=== PATIENT | male | born 1940 | race African-American/Black ===

== ENCOUNTER 2017-02-09 15:46 | Inpatient (IN) | payer OTHER, MEDICAID ==
[~2017-02-09] VITALS: Ht 154.9 cm; Wt 64.4 kg
[~2017-02-09 15:46] MED LIST: AMIODARONE200 MG PO; AMLODIPINE5 M1 PO; COLACE100 MG PO; COU2.5 PO; COU5 PO; COUMADIN2.5 MG PO; COUMADIN3 MG PO; HYDROCODONE BIT1 T26 PO; LOPRESSOR50 MG PO; NORCO1 TA2 PO; PRO40 PO; REN800 PO; TRE400 PO; ULT50 PO; ZES5 PO; ZOC20 PO; ZOCOR20 MG PO
--- NOTE | 2017-02-09 16:05 | NUR ---
PT WAS BROUGHT IN BY AMBULANCE W/CC OF LOW BG. PT'S BG AT HOME WAS 25 WHEN FAMILY FOUND HIM ALTERED. PT REC'D DEXTROSE BY EMS AND BG RAJNI TO 187. PT AWAKE, ALERT AND ORIENTED X4. NO NEUROLOGICAL DEFICTS NOTED. COMFORT MEASURES IMPLEMENTED. CALL LIGHT W/IN REACH. PT AWAITING MSE. WILL CONTINUE TO MONITOR.
--- NOTE | 2017-02-09 16:22 | NUR ---
DR. JACKSON AT BEDSIDE FOR MSE.
--- NOTE | 2017-02-09 16:41 | NUR ---
MEDICATED ORDERED. PLEASE SEE EMR.
--- NOTE | 2017-02-09 17:03 | NUR ---
PT SITTING ON GURNEY IN POSITION OF COMFORT. RESPS E/U. NO S/S OF DISTRESS NOTED. CALL LIGHT W/IN REACH. WILL CONTINUE TO MONITOR.
[2017-02-09 17:09] LABS: BASOPHIL % 0.4 % (0-2); PLATELET COUNT 185 x10^3mcL (130-400)
[2017-02-09 17:10] LABS: ALKALINE PHOSPHATASE 97 U/L (46-116); ALT/SGPT 19 U/L (16-63); AST/SGOT 16 U/L (15-37); BILIRUBIN TOTAL 0.5 mg/dL (0.20-1.00); CALCIUM 8.8 mg/dL (8.5-10.1); CARBON DIOXIDE 36.3 mmol/L (21-32); CHLORIDE SERUM 98 mmol/L (98-107); GLUCOSE SERUM 82 mg/dL (74-106); POTASSIUM SERUM 3.4 mmol/L (3.5-5.1); RED CELL DISTRIBUTION WIDTH 17.5 % (11.5-14.5); SODIUM SERUM 142 mmol/L (136-145); TOTAL PROTEIN, SERUM 7.1 g/dL (6.4-8.2)
[2017-02-09 17:12] LABS: ALBUMIN 3.2 g/dL (3.4-5.0)
[2017-02-09 17:14] LABS: CREATININE SERUM 4.4 mg/dL (0.7-1.3)
--- NOTE | 2017-02-09 17:30 | NUR ---
DR. JACKSON MADE AWARE OF NEW BG READING OF 79. MED ORDER PENDING.
--- NOTE | 2017-02-09 17:35 | NUR ---
MEDICATED ORDERED. PLEASE SEE EMR.
--- NOTE | 2017-02-09 19:25 | NUR ---
REPORT GIVEN TO MIRIAM HARLEY FOR CONTINUATION OF CARE PRIMARY RN.
--- NOTE | 2017-02-09 19:28 | NUR ---
REPORT RECEIVED FROM MIRIAM SALAS. ALL QUESTIONS AND CONCERNS ADDRESSED.
[2017-02-09 20:06] VITALS: BP 146/79
[2017-02-09 20:15] LABS: MAGNESIUM 2.1 mg/dL (1.8-2.4); PHOSPHOROUS 3.3 mg/dL (2.5-4.9); T3 TOTAL 0.64 ng/mL
[2017-02-09 20:17] LABS: CHOLESTEROL/HDL RATIO 2.3
[2017-02-09 20:20] LABS: FREE T4 1.48 ng/dL (0.76-1.46); FREE THYROXINE INDEX 4.6 ug/dL (1.4-4.5)
[2017-02-09 21:09] VITALS: BP 146/79
--- NOTE | 2017-02-09 22:34 | NUR ---
BLOOD SUGAR AR 2202=40MG/DL, DR GODWIN MADE AWARE, MD TALKED TO BOARD AND CARE PT DID NOT EAT LAST NIGHT AND WHOLE DAY TODAY. PT WAS GIVEN 3CUPS OF PUDDING AND 240CC OF REGULAR SPRITE, BLOOD SUGAR CHECKED AFTER 30MINS WITH RESULT OF 43MG/DL. DR GODWIN MADE AWARE AND ORDERED D5 1/2NS AT 100CC/HR AND CARRIED OUT.
--- NOTE | 2017-02-10 00:11 | NUR ---
250ML D50 COMPLETED, BLOOD SUGAR CHECKED 223MG/DL. PT APPARENTLY RESTING IN BED. NO S/S OF ACUTE DISTRESS.
[2017-02-10 00:30] VITALS: BP 147/76
--- NOTE | 2017-02-10 01:30 | NUR ---
ADDITIONAL SNACKS GIVEN AND WELL TOLERATED. NO S/S OF GLYCEMIC REACTION NTOED. KEPT CLEAN AND DRY.
[2017-02-10 05:29] VITALS: BP 141/81
[2017-02-10 05:32] VITALS: BP 166/64
[2017-02-10 06:15] LABS: BASOPHIL % 0.5 % (0-2); PLATELET COUNT 160 x10^3mcL (130-400)
--- NOTE | 2017-02-10 06:15 | NUR ---
BLOOD SUGAR CHECKED 92MG/DL. DENIES ANY DISCOMFORT AT THIS TIME. TOLERATED FLUIDS ORALLY. KEPT CLEAN AND DRY. ALL NEEDS ATTENDED.
[2017-02-10 06:33] VITALS: Ht 154.9 cm; Wt 64.4 kg
[2017-02-10 06:44] LABS: CALCIUM 8.8 mg/dL (8.5-10.1); CARBON DIOXIDE 29.5 mmol/L (21-32); CHLORIDE SERUM 102 mmol/L (98-107); GLUCOSE SERUM 70 mg/dL (74-106); POTASSIUM SERUM 3.8 mmol/L (3.5-5.1); SODIUM SERUM 140 mmol/L (136-145)
[2017-02-10 06:46] LABS: ALBUMIN 2.8 g/dL (3.4-5.0); CREATININE SERUM 4.8 mg/dL (0.7-1.3)
[2017-02-10 06:58] LABS: RED CELL DISTRIBUTION WIDTH 17.1 % (11.5-14.5)
--- NOTE | 2017-02-10 08:05 | NUR ---
PT IS AWAKE AND ALERT WITH PERIODS OF CONFUSION AND FORGETFULNESS. VISUAL DEFICTS R/T BLIND RIGHT EYE. ON TELE #14 WITH NSR. PULSES PALPABLE BILATERALLY. LUNG SOUNDS CLEAR TO AUSCULTATION. HEMODIALYSIS PATIENT WITH RIGHT ARM FISTULA WITH GOOD BRUIT AND THRILL. PT IS ANURIC WITH NO OUTPUT. GENERALIZED WEAKNESS.WILL CONTINUE PLAN OF CARE.
[2017-02-10 13:10] VITALS: BP 142/57
--- NOTE | 2017-02-10 15:14 | NUR ---
NOTIFIED REGARDING THE PT RESULTS 18.2 INR 1.7 PTT 36.8 MADE AWARE WITH ORDERS RECEIVED.
--- NOTE | 2017-02-10 15:25 | NUR ---
HEMODIALYSIS STARTED ,HEMODIALYSIS NURSE AT BEDSIDE,PT. RESTING COMFORTABLY IN BED. CALL LIGHT W/ IN REACH.
--- NOTE | 2017-02-10 15:26 | NUR ---
Initial Nutrition Assessment Dx: Metabolic Encephalopathy 2/2 Hypoglycemia PMHx: ESRD on dialysis M/W/F [facility], chronic atrial fibrillation, CAD s/p CABG, HLD, GERD, HTN, DM2T PSHx: CABG Labs: BG 70L,FSBS: 43 (02/09), K+ 3.8, Phos 3.3, BUN 26H, Cr 4.8H, Alb 2.8L, A1C 4.5, H/H 8.3/26L Meds: renagel, colace, protonix, humulin R, zofran, morphine Current Diet Order: Renal (02/09) PO Intakes: 100% (02/10) Ht: 154.94cm,61". Wt: 141lbs, 64kg. BMI: 26.8 kg/m2 (Overweight) IBW: 112lb, 51kg. %IBW: 156%. UBW: pt unsure Age: 76 Y/O M Food Allergies: NKFA Skin: intact. Jovan:18 Edema: None noted GI: bowel sounds active. Last BM:1 (02/08) D.O Consult: decreased PO intake and hypoglycemia Pt admitted w/Metabolic Encephalopathy 2/2 Hypoglycemia, as per H+P, pt refused to eat dinner and takes 10 units of Lantus in the AM, seen at bedside w/ no family present, pt was a bit groggy but open to RD interview, states eating very well for lunch, has missing teeth but does not want the texture to be changed, denies GI issues, does not like to drink Nepro, declined education or handouts at this time. Spoke to LOGISTICS PLANNING MANAGER, reports the pt ate very well for lunch, the pt was concerned about his hand shaking but ate the hamburger fine, during breakfast the pt needed assistance w/ utensils but was agreeable to the help, no BM during shift, denies other GI issues. Problem with: N: None. V: None. D: none. C: None. Problem with: Chewing: Yes- has some bottom teeth missing, declined texture change. Swallowing: None. Current Appetite: Good Recent Weight Change: unable to assess. % Weight Change: unable to assess Vitamin/Supplement Use: none Diet at Home: is from [facility], 3 meals per day, does not like Nepro Physical Activity: ambulates w/ wheelchair and walker Education: none Estimated Nutritional Needs Based on IBW 112 lb, 51kg Energy: 4735-3498 kcal/day (30-35 kcal/kg for HD) Protein: 61-77 g/day (1.2-1.5 g/kg for HD) Fluid: output +750 ml/day (for HD) or per MD Nutrition Diagnosis 1. Increased protein and energy needs related to impaired renal function 2/2 HD as evidenced by pt on HD. 2. Altered nutrition related labs related to inappropriate insulin administration 2/2 skipping meal as evidenced by pt w/ FSBS: 43mg/dL and Bmg/dL. Intervention 1. CCHO 60gm Renal diet w/ 75g protein per day. Make food preferences known. 2. Adjust insulin regimen PRN- Bmg/dL and FSBS:43mg/dL 3. Nephro-aggie daily Monitor/Evaluate Goal: PO intakes to meet at least 75% of estimated needs; FSBS:80-180mg/dL Monitor: PO intakes/tolerance, labs, skin integrity, GI function, wt F/U in 3-5 days as MODERATE risk (02/13-02/15)
--- NOTE | 2017-02-10 15:28 | NUR ---
1. [facility] 60gm Renal diet w/ 75g protein per day. Make food preferences known. 2. Adjust insulin regimen PRN- Bmg/dL and FSBS:43mg/dL 3. Nephro-aggie daily
[2017-02-10 16:18] VITALS: BP 145/58
--- NOTE | 2017-02-10 17:00 | NUR ---
HEMODIALYSIS IN PROGRESS.DENIES ANY PAIN NO ACUTE DISTRESS NOTED.
--- NOTE | 2017-02-10 19:25 | NUR ---
HEMODIALYSIS COMPLETED. W/ OUT PUT 2500 CC.
--- NOTE | 2017-02-10 19:26 | NUR ---
RECEIVED PT FROM PREVIOUS SHIFT. PT A/OX3. RECEIVING DIALYSIS AT THIS TIME TO PORT IN [facility]. DENIES PAIN AT THIS TIME. IV TO L HAND PATENT. NO ACUTE DISTRESS. CALL LIGHT WITHIN REACH, BED IN LOW POSITION. WILL CONTINUE TO MONITOR.
--- NOTE | 2017-02-10 21:03 | NUR ---
PT REFUSING ACCUCHECK AT THIS TIME. DR GODWIN PAGED TO MAKE HIM AWARE
[2017-02-10 22:24] VITALS: BP 146/57
--- NOTE | 2017-02-11 02:38 | NUR ---
PT RESTING AT THIS TIME IN NO ACUTE DISTRESS. RR EVEN AND UNLABORED. IV PATENT. CALL LIGHT WITHIN REACH AND BED IN LOW POSITION. WILL CONTINUE TO MONITOR
--- NOTE | 2017-02-11 05:11 | NUR ---
IV TO LFA REMOVED DURING SLEEP. IV TO L HAND STILL PATENT AND FLUSHING WELL.
[2017-02-11 06:06] VITALS: BP 154/50
[2017-02-11 06:12] LABS: CALCIUM 8.6 mg/dL (8.5-10.1); CARBON DIOXIDE 33.8 mmol/L (21-32); CHLORIDE SERUM 100 mmol/L (98-107); CREATININE SERUM 3.2 mg/dL (0.7-1.3); GLUCOSE SERUM 132 mg/dL (74-106); PHOSPHOROUS 2.7 mg/dL (2.5-4.9); POTASSIUM SERUM 3.2 mmol/L (3.5-5.1); SODIUM SERUM 140 mmol/L (136-145)
[2017-02-11 06:17] LABS: BASOPHIL % 0.6 % (0-2); PLATELET COUNT 173 x10^3mcL (130-400)
[2017-02-11 06:23] LABS: RED CELL DISTRIBUTION WIDTH 17.5 % (11.5-14.5)
[2017-02-11 06:42] LABS: IRON 44 ug/dL (65-170)
[2017-02-11 06:47] LABS: TOTAL IRON BINDING CAPACITY 222 ug/dL (250-450)
--- NOTE | 2017-02-11 07:55 | NUR ---
AWAKE,ALERT W/ PERIODS OF CONFUSION AND FORGETFULNESS,REQUIRES MOD. ASSIST W/ ADL NEEDS. CALL LIGHT W/ IN REACH.ANURIC HAD HEMODIALYSIS YESTERDAY W/ OUTPUT 2500 CC.DENIES ANY PAIN AT THIS TIME. NO ACUTE RESP. DISTRESS NOTED WILL CONT. PLAN OF CARE.
--- NOTE | 2017-02-11 08:20 | NUR ---
DR. CARBALLO WAS HERE W/ OTHER MEDICAL STAFF MADE ROUNDS AND UPDATED PT. PLAN OF CARE.
[2017-02-11 10:00] VITALS: BP 133/56
[2017-02-11] MEDS ORDERED: BG FS ×2 (12:22→17:36)
[2017-02-11] MEDS ORDERED: HUMULIN R100 U/1 M1 SC (12:29)
[2017-02-11] MEDS ORDERED: NOR5 PO (13:16)
[2017-02-11] MEDS ORDERED: LOPRESSOR50 M1 PO (13:19)
[2017-02-11 13:21] VITALS: BP 145/62
[2017-02-11 13:43] VITALS: BP 145/62
[2017-02-11] MEDS ORDERED: LANTUS SOLOS100 U/M1 SQ ×2 (14:15→17:36)
--- NOTE | 2017-02-11 17:00 | NUR ---
DENIES PAIN THE WHOLE DAY,DR. CARL HERE SEEN PT. W/ ORDERS D/C HOME TODAY. PT. AWARE AND AWAITING FOR RIDE.
[2017-02-11] MEDS ORDERED: 1ST CHOICE LAN1 EACH MC (17:35)
--- NOTE | 2017-02-11 19:15 | NUR ---
DISCHARGE INSTRUCTIONS AND PRESCRIPTION GIVEN AND DISCUSED TO PT. DAUGHTER AND VERBALIZED UNDERSTANDING OF INSTRUCTIONS GIVEN.
--- NOTE | 2017-02-11 19:20 | NUR ---
PT IN STABLE CONDITION. DAUGHTER AT BEDSIDE. DISCHARGED DOWNSTAIRS BY WHEELCHAIR, ACCOMPANIED BY NATALEE COLÓN.
--- NOTE | 2017-02-12 07:15 | NUR ---
ECHOCARDIOGRAM NOT DONE PATIENT DISCHARGED
== END 2017-02-11 19:30 | disposition home or self-care (01) | DRG 637 ==
LOC: ED 15:46 → DU 19:11
PROVIDERS: Emergency Medicine; Internal Medicine Nephrology; ADMIT Family Medicine
DX: E11.649 Type 2 diabetes mellitus with hypoglycemia without coma (principal); G93.41 Metabolic encephalopathy; I50.43 Acute on chronic combined systolic (congestive) and diastolic (congestive) heart failure; E44.0 Moderate protein-calorie malnutrition; I13.2 Hypertensive heart and chronic kidney disease with heart failure and with stage 5 chronic kidney disease, or end stage renal disease; N18.6 End stage renal disease; N17.0 Acute kidney failure with tubular necrosis; E11.51 Type 2 diabetes mellitus with diabetic peripheral angiopathy without gangrene; E87.6 Hypokalemia; I25.10 Atherosclerotic heart disease of native coronary artery without angina pectoris; I48.2 Chronic atrial fibrillation; K21.9 Gastro-esophageal reflux disease without esophagitis; D63.8 Anemia in other chronic diseases classified elsewhere; E78.5 Hyperlipidemia, unspecified; Z99.2 Dependence on renal dialysis; Z68.26 Body mass index [BMI] 26.0-26.9, adult; Z95.1 Presence of aortocoronary bypass graft; Z79.01 Long term (current) use of anticoagulants; Z79.4 Long term (current) use of insulin
CPT/HCPCS: 82962; 83880; 84439; B4164; C9113; J3475; J3490; J7030; Q0092

== ENCOUNTER 2017-03-26 16:04 | Inpatient (IN) | payer OTHER ==
[~2017-03-26] VITALS: Ht 170.2 cm; Wt 72.6 kg
[~2017-03-26 16:04] MED LIST changes: +1ST CHOICE LAN1 EACH MC; +BG FS; +HUMULIN R100 U/1 M1 SC; +LANTUS SOLOS100 U/M1 SQ; +LOPRESSOR50 M1 PO; +NOR5 PO
[2017-03-27] MEDS ORDERED: PANTOPRAZOLE SO40 M1 PO (01:49)
[2017-03-27] MEDS ORDERED: AMIODARONE HCL200 MG PO (01:49)
[2017-03-27] MEDS ORDERED: LISINOPRIL10 MG PO (01:49)
[2017-03-27] MEDS ORDERED: RENVELA800 M1 PO (01:50)
[2017-03-27] MEDS ORDERED: NOR5 PO (01:50)
[2017-03-27] MEDS ORDERED: METOPROLOL SUCC50 M2 PO (01:50)
[2017-03-27] MEDS ORDERED: COUMADIN5 MG PO (01:51)
[2017-03-27] MEDS ORDERED: SIMVASTATIN20 M1 PO (01:51)
[2017-03-27] MEDS ORDERED: LANTUS SOLOS100 U/M1 SQ (01:51)
[2017-03-27 02:52] LABS: CALCIUM 8.6 mg/dL (8.5-10.1); CARBON DIOXIDE 30.8 mmol/L (21-32); CHLORIDE SERUM 100 mmol/L (98-107); CREATININE SERUM 3.2 mg/dL (0.7-1.3); GLUCOSE SERUM 112 mg/dL (74-106); POTASSIUM SERUM 3.2 mmol/L (3.5-5.1); SODIUM SERUM 138 mmol/L (136-145)
[2017-03-27 03:07] LABS: FREE T4 2.13 ng/dL (0.76-1.46); FREE THYROXINE INDEX 4.8 ug/dL (1.4-4.5); T3 TOTAL 0.65 ng/mL; T4(THYROXINE) 12.9 ug/dL (4.7-13.3)
[2017-03-27 03:12] LABS: BASOPHIL % 0.6 % (0-2); PLATELET COUNT 210 x10^3mcL (130-400)
[2017-03-27 03:23] LABS: MAGNESIUM 1.9 mg/dL (1.8-2.4); PHOSPHOROUS 2.2 mg/dL (2.5-4.9)
[2017-03-27 03:24] LABS: RED CELL DISTRIBUTION WIDTH 17.9 % (11.5-14.5)
[2017-03-27 03:29] LABS: CHOLESTEROL/HDL RATIO 2.3
[2017-03-27 04:19] VITALS: BP 168/72
[2017-03-27 06:43] VITALS: BP 160/67
[2017-03-27 09:53] VITALS: BP 127/58
[2017-03-27 11:56] VITALS: Ht 170.2 cm; Wt 72.6 kg
[2017-03-27 13:03] VITALS: BP 150/56
[2017-03-27 17:54] VITALS: BP 139/60
[2017-03-27 20:42] VITALS: BP 140/61
[2017-03-28 05:37] VITALS: BP 134/58
[2017-03-28 07:09] LABS: CARBON DIOXIDE 29.5 mmol/L (21-32); CHLORIDE SERUM 101 mmol/L (98-107); GLUCOSE SERUM 101 mg/dL (74-106); MAGNESIUM 2.1 mg/dL (1.8-2.4); PHOSPHOROUS 3.7 mg/dL (2.5-4.9); POTASSIUM SERUM 5.4 mmol/L (3.5-5.1); SODIUM SERUM 140 mmol/L (136-145)
[2017-03-28 07:27] LABS: CREATININE SERUM 4.6 mg/dL (0.7-1.3)
[2017-03-28 07:29] LABS: BASOPHIL % 0.9 % (0-2); PLATELET COUNT 209 x10^3mcL (130-400)
[2017-03-28 07:31] LABS: RED CELL DISTRIBUTION WIDTH 17.6 % (11.5-14.5)
[2017-03-28 08:40] VITALS: BP 141/56
[2017-03-28 13:55] VITALS: BP 151/64
[2017-03-28 17:35] VITALS: BP 154/62
[2017-03-28 21:00] VITALS: BP 151/65
[2017-03-29 05:30] VITALS: BP 155/67
[2017-03-29 06:55] LABS: BASOPHIL % 0.5 % (0-2); PLATELET COUNT 225 x10^3mcL (130-400)
[2017-03-29 07:07] LABS: CARBON DIOXIDE 29.6 mmol/L (21-32); CHLORIDE SERUM 99 mmol/L (98-107); GLUCOSE SERUM 100 mg/dL (74-106); MAGNESIUM 2.1 mg/dL (1.8-2.4); PHOSPHOROUS 3.6 mg/dL (2.5-4.9); POTASSIUM SERUM 4.8 mmol/L (3.5-5.1); SODIUM SERUM 137 mmol/L (136-145)
[2017-03-29 07:18] LABS: CREATININE SERUM 5.4 mg/dL (0.7-1.3)
[2017-03-29 10:04] VITALS: BP 147/68
[2017-03-29 16:49] VITALS: BP 129/62
[2017-03-29 20:36] VITALS: BP 133/67
[2017-03-30 09:09] VITALS: BP 124/66
[2017-03-30 09:38] LABS: CALCIUM 9.2 mg/dL (8.5-10.1); CARBON DIOXIDE 29.7 mmol/L (21-32); CHLORIDE SERUM 100 mmol/L (98-107); GLUCOSE SERUM 153 mg/dL (74-106); POTASSIUM SERUM 3.8 mmol/L (3.5-5.1); SODIUM SERUM 138 mmol/L (136-145)
[2017-03-30 09:45] LABS: CREATININE SERUM 4.7 mg/dL (0.7-1.3)
[2017-03-30 10:33] LABS: IRON 28 ug/dL (65-170); TOTAL IRON BINDING CAPACITY 196 ug/dL (250-450)
[2017-03-30 18:28] VITALS: BP 133/66
[2017-03-30 20:41] VITALS: BP 145/75
[2017-03-30 20:56] VITALS: BP 152/76
[2017-03-31 07:45] VITALS: BP 127/76
[2017-03-31 09:50] VITALS: BP 88/42
[2017-03-31 12:30] VITALS: BP 100/52
[2017-03-31 17:18] VITALS: BP 112/61
[2017-03-31 18:39] VITALS: BP 112/61
[2017-03-31 20:48] VITALS: BP 95/68
== END 2017-03-31 21:42 | DRG 542 ==
LOC: ED 16:04 → DU 03-27 00:51 → MU 03-27 00:51 → DU 03-27 02:20 → MU 03-28 11:55
PROVIDERS: Internal Medicine; ADMIT Family Medicine
DX: M84.454A Pathological fracture, pelvis, initial encounter for fracture (principal); N17.0 Acute kidney failure with tubular necrosis; I50.43 Acute on chronic combined systolic (congestive) and diastolic (congestive) heart failure; N18.6 End stage renal disease; I13.2 Hypertensive heart and chronic kidney disease with heart failure and with stage 5 chronic kidney disease, or end stage renal disease; I42.9 Cardiomyopathy, unspecified; E87.6 Hypokalemia; E11.51 Type 2 diabetes mellitus with diabetic peripheral angiopathy without gangrene; I48.2 Chronic atrial fibrillation; I25.10 Atherosclerotic heart disease of native coronary artery without angina pectoris; E78.5 Hyperlipidemia, unspecified; K21.9 Gastro-esophageal reflux disease without esophagitis; D63.1 Anemia in chronic kidney disease; Z99.2 Dependence on renal dialysis; Z95.1 Presence of aortocoronary bypass graft; Z79.01 Long term (current) use of anticoagulants; Z79.4 Long term (current) use of insulin; Z87.891 Personal history of nicotine dependence
CPT/HCPCS: 82962; 83880; 84439; 97110-GP; 97530-GP; C9113; J7030

== ENCOUNTER 2017-05-11 09:39 | Inpatient (IN) | payer OTHER ==
[~2017-05-11] VITALS: Ht 170.2 cm; Wt 62.0 kg
[~2017-05-11 09:39] MED LIST changes: +AMIODARONE HCL200 MG PO; +COUMADIN5 MG PO; +LISINOPRIL10 MG PO; +METOPROLOL SUCC50 M2 PO; +PANTOPRAZOLE SO40 M1 PO; +RENVELA800 M1 PO; +SIMVASTATIN20 M1 PO
--- NOTE | 2017-05-11 10:01 | NUR ---
PT BIB AMBULANCE DUE TO WEAKNESS ON RIGHT LEG. PER INSURANCE CLAIM REPRESENTATIVE PT IS UNABLE TO GET UP FROM A CHAIR. PT REPORTS UNALBE TO STAND ON RIGHT LEG. PT IS A DIALYSIS PT M,W,F. PER PT HE DID NOT HAVE DIALYSIS YESTERDAY, BECAUSE HE WAS NOT PICKED UP BY HIS RIDE. PT IS AAOX4, BREATHING EVEN AND UNLABORED, IN NO ACUTE DISTRESS.
--- NOTE | 2017-05-11 10:07 | NUR ---
DR. JACKSON PERFORMED MSE
--- NOTE | 2017-05-11 10:26 | NUR ---
X-RAY AT BEDSIDE
[2017-05-11 10:34] LABS: BASOPHIL % 0.5 % (0-2); PLATELET COUNT 212 x10^3mcL (130-400)
[2017-05-11 10:36] LABS: RED CELL DISTRIBUTION WIDTH 18.6 % (11.5-14.5)
--- NOTE | 2017-05-11 10:48 | NUR ---
PT TAKEN TO CT BY RIKKI
[2017-05-11 10:51] LABS: ALKALINE PHOSPHATASE 117 U/L (46-116); ALT/SGPT 15 U/L (16-63); AST/SGOT 14 U/L (15-37); BILIRUBIN TOTAL 0.5 mg/dL (0.20-1.00); CALCIUM 8.7 mg/dL (8.5-10.1); CARBON DIOXIDE 34.9 mmol/L (21-32); CHLORIDE SERUM 102 mmol/L (98-107); GLUCOSE SERUM 138 mg/dL (74-106); POTASSIUM SERUM 3.4 mmol/L (3.5-5.1); SODIUM SERUM 141 mmol/L (136-145); TOTAL PROTEIN, SERUM 7.6 g/dL (6.4-8.2)
[2017-05-11 10:53] LABS: ALBUMIN 3.2 g/dL (3.4-5.0); CREATININE SERUM 5.5 mg/dL (0.7-1.3)
--- NOTE | 2017-05-11 11:06 | NUR ---
PT STATES UNABLE TO PROVIDE URINE AT THIS TIME
--- NOTE | 2017-05-11 11:17 | NUR ---
PT MAKES VERY LITTLE URINE, NO CATH NEEDED PER DR. JACKSON AT THIS TIME
--- NOTE | 2017-05-11 11:28 | NUR ---
PER DR. JACKSON PT RECEIVING MAGNESIUM FOR PROLONGED QRS; PT AWAKE AND ALERT, NO ACUTE DISTRESS, DENIES ANY ALLERGIES TO MEDICATION
--- NOTE | 2017-05-11 11:29 | NUR ---
PT DOES NOT RECALL HOME MEDICATIONS
--- NOTE | 2017-05-11 11:57 | NUR ---
PT WAS IN ER IN MARCH FOR PELVIC FRACTURE
[2017-05-11 12:02] LABS: MAGNESIUM 2.2 mg/dL (1.8-2.4); PHOSPHOROUS 3.3 mg/dL (2.5-4.9)
[2017-05-11 12:09] LABS: CHOLESTEROL/HDL RATIO 2.2
--- NOTE | 2017-05-11 12:09 | NUR ---
GAVE REPORT TO TRAVIS AT [id number]
[2017-05-11 12:29] LABS: T3 TOTAL 0.54 ng/mL
--- NOTE | 2017-05-11 12:30 | NUR ---
RECEIVED PATIENT FROM ED VIA GUERNEY ACCOMPANIED BY NURSE. PATIENT A/O AND ABLE TO MAKE NEEDS KNOWN. IV ACCESS TO LAC 20 G RUNNING MAG RIDER, SITE WNL. DENIES HEADACHE OR CP. PAIN TO RLE 8/10 WHEN TRYING TO STAND BUT STATES OKAY AT REST. LUNGS DIMINISHED BILAT, NO RESP DISTRESS NOTED ON RA. AV SHUNT TO KAREN BRUIT/THRILL NOTED. LAST BM STATED THIS MORNING NORMAL, DENIES NAUSEA OR ABD DISCOMFORT. DENTURES UPPER/LOWER IN PLACE. STATES BLIND TO RT EYE. PERRLA NOTED TO LT EYE. SKIN WOUNDS NOTED TO BILAT FEET AND LT HIP AREA. WILL TAKE PICTURES. VS TAKEN. ORIENTED PATIENT TO ROOM AND CALL LIGHT WITHIN REACH.
[2017-05-11 12:31] LABS: FREE T4 1.7 ng/dL (0.76-1.46)
[2017-05-11 12:32] LABS: FREE THYROXINE INDEX 5.5 ug/dL (1.4-4.5); T4(THYROXINE) 13.5 ug/dL (4.7-13.3)
[2017-05-11 14:18] VITALS: BP 146/60
[2017-05-11 16:59] VITALS: BP 146/59
--- NOTE | 2017-05-11 18:15 | NUR ---
ASSISTED PATIENT WITH PREPARING DINNER TRAY. NO ACUTE DISTRESS NOTED AT THIS TIME. HD ORDER RECEIVED FOR TOMORROWELVIRA HD NURSE CALLED AND SCHEDULED.
--- NOTE | 2017-05-11 20:08 | NUR ---
REC'D PT FROM DAY NURSE. AAOX4. LAYING IN BED COMFORTABLY. DENIES PAIN AT THIS TIME. TELE # 33. CRACKLES HEARD ON BILA BASES. BREATH SOUNDS ARE EVEN AND UNLABORED. NO SOB. NO N/V/D. NO EDEMA NOTED. IV INTACT AND PATENT INFUSING TO LAC @10 ML/HR. BED IN LOWEST POSITION. CALL LIGHT WITHIN REACH. WILL CONT TO MONITOR.
--- NOTE | 2017-05-11 20:08 | NUR ---
REC'D PT FROM DAY NURSE. AAOX4. LAYING IN BED COMFORTABLY. DENIES PAIN AT THIST TIME. TELE #33. LUNG SOUNDS DIMINISHED AND CRACKLES HEARD BILA BASES. BREATH SOUNDS ARE EVEN AND UNLABORED. NO SOB. NO N/V/D. EDEMA BLE NOTED. IV INTACT AND PATENT INFUSING TO LAC @ 10ML/HR. BED IN LOWEST POSITION. CALL LIGHT WITHIN REACH. WILL CONT TO MONITOR.
--- NOTE | 2017-05-11 21:35 | NUR ---
PT GIVEN SCHEDULE MEDS. TOLERATED ALL ORAL MEDS WELL. WILL CONT TO MONITOR.
[2017-05-11 21:55] VITALS: BP 137/56
--- NOTE | 2017-05-12 01:05 | NUR ---
DR GUZMÁN IS AWARE OF PT INR AND PTT.
--- NOTE | 2017-05-12 01:21 | NUR ---
PT REFUSED BLOOD DRA[facility] FROM [facility]. THE PHELBOTOMIST STATED SHE'LL TRY AGAIN LATER.
--- NOTE | 2017-05-12 02:50 | NUR ---
PT IS CURRENTLY ASLEEP AND RESTING WELL. NO ACUTE DISTRESS NOTED. BREATH SOUNDS ARE EVEN AND UNLABORED. WILL CONT TO MONITOR.
[2017-05-12 05:31] VITALS: BP 135/55
--- NOTE | 2017-05-12 06:10 | NUR ---
PT SLEPT THROUGHOUT THE SHIFT. NO ACUTE DISTRESS OR SIGNIFICANT CHANGES NOTED. ALL NEEDS MET AND ATTENDED TO. BS 90MG/DL. BREATH SOUNDS ARE EVEN AND UNLABORED. IV INTACT AND PATENT INFUSING WELL. WILL ENDORSE ALL CONTINUITY CARE TO ONCOMING NURSE.
[2017-05-12 06:12] LABS: BASOPHIL % 0.6 % (0-2); PLATELET COUNT 179 x10^3mcL (130-400)
[2017-05-12 06:14] LABS: CALCIUM 8.5 mg/dL (8.5-10.1); CARBON DIOXIDE 29.3 mmol/L (21-32); CHLORIDE SERUM 105 mmol/L (98-107); GLUCOSE SERUM 90 mg/dL (74-106); POTASSIUM SERUM 3.5 mmol/L (3.5-5.1); SODIUM SERUM 145 mmol/L (136-145)
[2017-05-12 06:19] LABS: CREATININE SERUM 5.9 mg/dL (0.7-1.3)
[2017-05-12 06:42] LABS: RED CELL DISTRIBUTION WIDTH 18.2 % (11.5-14.5)
--- NOTE | 2017-05-12 07:20 | NUR ---
RECEIVED PATIENT LAYING IN BED A/O X3, CLEAR SPEECH, NO NEURO DEFICITS NOTED. TELE # [address], DENIES CHEST PAIN. BREATHING EVEN UNLABBORED, NO DISTRESS NOTED. PATIENT HAS HX OF ESRD, SCHEDULED FOR HD TODAY, AV SHUNT TO KAREN, CDI. IV TO LAC INTACT INFUSING NS AT 10 ML/HR FREE FROM REDNESS AND INFILTRATION. PATIENT NOT COOPERATIVE AT THIS TIME, PATIENT REFUSING NURSING ASSESSMENT. PATIENT AWARE OF IMPORTANCE OF ASSESSMENT, BUT STILL REFUSING AT THIS TIME. INSTRUCTED PATIENT TO CALL FOR ASSISTANCE IF NEEDED. CALL LIGHT WITHIN REACH, BED IN LOW POSITION. WILL MONITOR.
--- NOTE | 2017-05-12 08:20 | NUR ---
HEMODIALYSIS NURSE FELIX AT BEDSIDE PREPARRING PATIENT FOR HEMODIALYSIS TODAY PER MD ORDERS. ALL NEEDS ATTENDED TO. WILL MONITOR.
--- NOTE | 2017-05-12 08:42 | NUR ---
PATIENT REFUSING AM MEDICATION AT THIS TIME. WANTS TO WAIT TILL AFTER HEMODIALYSIS IS COMPLETE.
--- NOTE | 2017-05-12 09:25 | NUR ---
cancellation requested for echocardiogram
[2017-05-12 10:20] VITALS: BP 126/63
--- NOTE | 2017-05-12 11:55 | NUR ---
HEMODIALYSIS COMPLETE AT THIS TIME WITH 2 L OUT. PATIENT RESTING IN BED COMFORTABLY NO DISTRESS NOTED, BP 121/62, HR 50. WILL GIVE PATIENTS AM MEDICATIONS. ALL NEEDS ATTENDED TO. WILL MONITOR.
[2017-05-12 13:53] VITALS: BP 116/53
--- NOTE | 2017-05-12 15:29 | NUR ---
P.T. NOTES ATTEMPTED TO WORK WITH PATIENT 2X TODAY FOR PT EVAL. FIRST ATTEMPT IN AM, PATIENT N/A HAVING HEMODIALYSIS IN ROOM. THEN ATTEMPTED IN PM, AND Pt ADAMANTLY DECLINED PT SERVICES. Pt EDU ON BENEFITS OF MOBILITY/THERAPY BUT CONTINUED TO DECLINE. PRIMARY RN NOTIFIED. WILL F/U TOMORROW. 2 PVE
--- NOTE | 2017-05-12 17:13 | NUR ---
AT 1701- PATIENTS BLOOD SUGAR 54 ASYMPTOMATIC, PATIENT REFUSED TO HAVE A REPEAT DONE. PUSHED D50 AND RECHECKED BLOOD SUGAR- 257. PATIENT REMAINS RESTING IN BED COMFORTABLY, NO DISTRESS NOTED. ALL NEEDS ATTENDED TO. WILL MONITOR.
--- NOTE | 2017-05-12 18:41 | NUR ---
PATIENT RESTING IN BED COMFORTABLY NO DISTRESS NOTED. IV TO LAC INTACT INFUSING IVF WELL. ALL NEEDS ATTENDED TO DURING SHIFT. SAFETY PRECAUTIONS IN PLACE. WILL ENDORSE CARE TO ONCOMING NURSE.
[2017-05-12 18:58] VITALS: BP 134/53
--- NOTE | 2017-05-12 19:39 | NUR ---
SHIFT REASSESSMENT DONE.PATIENT ALERT AND ORIENTED X 3.BREATHING EASY.ON PHYSICAL THERAPY,BUT REFUSED TODAY REPORTED.NS AT 10 CC/ HOUR.TELE 33 REMAINS SB.SCABS/ECCHYMOSIS BLE,DARK DISCOLORATION BUTTOCKS.BLE EDEMA NOTED.HAD HD TODAY 2 LITERS OUT.LFA AV SHUNT.MWF SCHEDULE HD.CALL LIGHT IN REACH.
[2017-05-12 21:42] LABS: UA SPECIFIC GRAVITY <=1.005 (1.005-1.035); microscopic required? YES; urine erythrocyte 1+ (NEGATIVE)
[2017-05-12 22:10] VITALS: BP 138/53
--- NOTE | 2017-05-13 00:20 | NUR ---
PATIENT VOIDED EARLIER ,UA SENT TO LAB,SAYS HE STILL VOID.HAD HD LAST YESTERDAY WITH 2 LITERS OUT.PATIENT IVF NS AT 10 CC/ HOUR.CALL LIGHT IN REACH.
--- NOTE | 2017-05-13 05:13 | NUR ---
PATIENT SLEEPING COMFORTABLY.PATIENT NEEDS ANTICIPATED,BLIND R EYE.CALL LITE IN REACH.
--- NOTE | 2017-05-13 05:56 | NUR ---
I AND O MEASURED AND RECORDED.NS AT 10 CC/ HOUR.RFA AV SHUNT GOOD BRUIT.BLOOD SUGAR THIS AM 106.WILL ENDORSE TO INCOMING SHIFT.CALL LIGHT IN REACH.
--- NOTE | 2017-05-13 06:23 | NUR ---
PATIENT DECLINE TO BE CLEANED UP,BED A MESS,SAYS HE IS OK,USING URINAL AT THIS TIME,IN BETWEEN HIS LEG.REMINDED TO CALL WHEN HE IS DONE USING IT.CALL LITE IN REACH.
[2017-05-13 07:00] VITALS: BP 135/96
[2017-05-13 07:01] LABS: BASOPHIL % 0.7 % (0-2); PLATELET COUNT 171 x10^3mcL (130-400)
[2017-05-13 07:03] LABS: RED CELL DISTRIBUTION WIDTH 18.6 % (11.5-14.5)
[2017-05-13 07:08] LABS: CALCIUM 8.5 mg/dL (8.5-10.1); CARBON DIOXIDE 32.2 mmol/L (21-32); CHLORIDE SERUM 101 mmol/L (98-107); CREATININE SERUM 3.6 mg/dL (0.7-1.3); GLUCOSE SERUM 75 mg/dL (74-106); POTASSIUM SERUM 3.2 mmol/L (3.5-5.1); SODIUM SERUM 138 mmol/L (136-145)
--- NOTE | 2017-05-13 07:25 | NUR ---
RECEIVED PATIENT LAYING IN BED A/O X2, TELE # [address], DENIES CHEST PAIN. BREATHING EVEN UNLABORRED ON RA, DENIES SOB. PATIENT WITH IV TO LAC INTACT INFUSING NS AT 10 ML/HR FREE FROM REDNESS AND INFILTRATION. PATIENT IS MORE CALM AND COOPERATIVE WITH CARE. INSTRUCTED TO CALL FOR ASSISTANCE IF NEEDED. CALL LIGHT WITHIN REACH, BED IN LOW POSITION. WILL MONITOR.
--- NOTE | 2017-05-13 09:05 | NUR ---
ROUNDS MADE- DR. CARBALLO, RESIDENT TEAM, CHARGE NURSE AND PRIMARY NURSE AT BEDSIDE. POC REVIEWED WITH PATIENT- PATIENTS INR IS 4.2, WILL SEE IF PATIENT QUALIFIES FOR ELOQUIS WITH PLAN FOR DISCHARGE TOMORROW 05/14/17. ALL QUESTIONS AND CONCERNS ADDRESSED. WILL MONITOR.
--- NOTE | 2017-05-13 12:26 | NUR ---
PATIENT RESTING IN BED COMFORTABLY NO DISTRESS NOTED. WILL MONITOR.
--- NOTE | 2017-05-13 14:10 | NUR ---
PATIENT RESTING IN BED COMFORTABLY NO DISTRESS NOTED. DUE MEDS GIVEN, TOLERATED WELL. ALL NEEDS ATTENDED TO. WILL MONITOR.
[2017-05-13 14:55] VITALS: BP 126/56
--- NOTE | 2017-05-13 17:00 | NUR ---
[id number]: PATIENTS IV TO LAC HALF WAY OUT AND KINKED. IV REMOVED, CATH INTACT. BLEEDING NOTED TO LAC, PRESSURE APPLIED. PATIENTS INR 4.2, COUMADIN ON HOLD. APPLIED GAUZE AND COBAN WRAP TO LAC, APPLIED MORE PRESSURE TO STOP BLEEDING. BLEEDING STOPPED AT THIS TIME. DR. REED MADE AWARE AND WILL CONTINUE TO MONITOR PATIENT FOR FURHTER BLEEDING.
--- NOTE | 2017-05-13 18:00 | NUR ---
PATIENT REFUSING TO HAVE VITAL SIGNS TAKEN AT THIS TIME.
--- NOTE | 2017-05-13 18:30 | NUR ---
PATIENT DOES NOT HAVE IV ACCESS AT THIS TIME. ATTEMPTED TO INSERT IV TO LFA MULTIPLE TIMES BUT VEIN BLEW EACH TIME, PRESSURE APPLIED TO STOP BLEEDING. UNABLE TO START NEW IV AT THIS TIME. NOTIFIED DR. REED (DO-RESIDENT). SAFETY PRECAUTIONS MAINTAINED. WILL MONITOR.
--- NOTE | 2017-05-13 19:20 | NUR ---
BEDSIDE REPORT GIVEN TO ERIN RN, ALL QUESTIONS AND CONCERNS ADDRESSED. ALL CARES ENDORSED.
--- NOTE | 2017-05-13 19:31 | NUR ---
LAB ATTEMPTED TO DRAW BLOOD FROM PT. PT REFUSED. LAB TOLD SEVERINO THEY WILL TRY AGAIN IN AN HOUR.
--- NOTE | 2017-05-13 19:40 | NUR ---
ATTEMPTED TO GIVE PAIN MEDICATION TO PT. PT STATED HE WAS EATING AND WOULD LIKE IT AFTERWARDS. RAISED THE BED AND HELPED SET UP TRAY. WILL FOLLOW UP.
--- NOTE | 2017-05-13 20:00 | NUR ---
PT IS AAOX2, FORGETFUL. TELE 33 NSR (62). LUNGS CTA ON RA. PT IS WC BOUND. ABD SOFT, FLAT, NON-TENDER. THERE IS CURRENTLY NO IV ACCESS. PT IS A HD PT WITH A M/W/F SCHEDULE. AV SHUNT IS LOCATED IN [facility]. THE BED IS IN THE LOWEST POSITION AND THE CALL LIGHT IS WITHIN REACH. WILL CONTINUE TO MONITOR.
--- NOTE | 2017-05-13 20:20 | NUR ---
DR. PARK AWARE THAT PT DOES NOT HAVE IV ACCESS. MULTIPLE ATTEMPTS HAVE BEEN MADE TO START ONE BY RESOURCE NURSES WITH NO SUCCESS BECAUSE PT'S VEINS KEEP BLOWING.
--- NOTE | 2017-05-13 20:28 | NUR ---
TRIED TO ADMINISTER NORCO AFTER PT WAS FINISHED EATING. PT STATED HE WAS NO LONGER IN PAIN AND DID NOT WANT IT. PT CONFIRMED TWICE. RETURNED MEDICATION TO [facility].
[2017-05-13 21:51] VITALS: BP 135/59
--- NOTE | 2017-05-14 01:07 | NUR ---
PAGEGGATED DR. PARK ABOUT LAB'S REPORT OF PT 49.4 AND INR 4.7
--- NOTE | 2017-05-14 02:35 | NUR ---
LAC, 20G IV PLACED BY
[2017-05-14 05:19] VITALS: BP 148/62
[2017-05-14 06:21] LABS: BASOPHIL % 0.5 % (0-2); PLATELET COUNT 160 x10^3mcL (130-400)
--- NOTE | 2017-05-14 06:28 | NUR ---
ALL NEEDS HAVE BEEN MET THROUGHOUT THE NIGHT. PT IS AT AN ODD ANGLE AND DOES NOT WISH TO BE REPOSITIONED. BED IN LOWEST POSITION AND CALL LIGHT WITHIN REACH. WILL CONTINUE TO MONITOR.
[2017-05-14 06:31] LABS: CALCIUM 8.6 mg/dL (8.5-10.1); CARBON DIOXIDE 30.3 mmol/L (21-32); CHLORIDE SERUM 104 mmol/L (98-107); GLUCOSE SERUM 100 mg/dL (74-106); SODIUM SERUM 142 mmol/L (136-145)
[2017-05-14 06:38] LABS: CREATININE SERUM 4.5 mg/dL (0.7-1.3)
[2017-05-14 07:32] LABS: RED CELL DISTRIBUTION WIDTH 18.8 % (11.5-14.5)
--- NOTE | 2017-05-14 07:50 | NUR ---
A/O X2 WITH PERIODS OF FORGETFULNESS. CLEAR SPEECH. FOLLOW COMMANDS. ON TEL 33 HR 57. RADIAL AND PEDAL PULSES PALPABLE. TRACE BLE. RUE FISTULA THRILL AND BRUIT PRESENT.<3 SECS CAP REFILL. ON RA SAT 95%. BREATHING EVEN AND UNLABORED. NO NVD. VOIDING ADEQUATELY. GENERALIZED WEAKNESS. SCABS AND ECCHYMOSIS BLE. DENIES PAIN AT THIS TIME. IV SITE INTACT ON LAC. WILL CONTINUE TO MONITOR. CALL LIGHT WITHIN REACH.
[2017-05-14 08:00] VITALS: BP 145/64
--- NOTE | 2017-05-14 08:28 | NUR ---
HD NURSE AT BEDSIDE. TOOK MEDS CRUSHED WITH APPLE SAUCE WITHOUT DIFFICULTY. WILL CONTINUE TO MONITOR.
--- NOTE | 2017-05-14 08:53 | NUR ---
SPOKE TO DR REED REGARDING PTT OF 49.2 AND INR OF 4.7
[2017-05-14 10:21] VITALS: BP 156/76
--- NOTE | 2017-05-14 10:53 | NUR ---
HD STILL ON GOING.
--- NOTE | 2017-05-14 11:44 | NUR ---
PER ADMINISTRATIVE ASSISTANT COORDINATOR. 2L WAS TAKEN OUT.
[2017-05-14 13:45] VITALS: BP 130/53
--- NOTE | 2017-05-14 14:20 | NUR ---
Pt HAVING FORGETFULL EPISODE. STATES HE IS GOING HOME. Pt RE-ORIENTED. WILL CONTINUE TO MONITOR.
--- NOTE | 2017-05-14 16:18 | NUR ---
RESTING COMFORTABLY. NO DISTRESS NOTED. WILL CONTINUE TO MONITIOR.
[2017-05-14 16:57] VITALS: BP 135/51
--- NOTE | 2017-05-14 17:10 | NUR ---
Pt REFUSED ACCUCHECK THIS TIME. Pt STATES HE DOES NOT NEED THAT RIGHT NOW. WILL CONTINUE TO MONITOR.
--- NOTE | 2017-05-14 20:04 | NUR ---
PT CURRENTLY RESTING IN BED, NO ACUTE DISTRESS. A/O X2, FORGETFUL. TELE #33 SHOWING SINUS RHYTHM. DENIES CHEST PAIN. PULSES PALPABLE IN ALL EXTREMITIES, NO EDEMA NOTED. LUNG SOUNDS CTA BILATERALLY. BOWEL SOUNDS ACTIVE, LAST BM 05/12/17. INCONTINENCE NOTED. RECEIVED HD 05/14/17, 2L OUT. GENERALIZED WEAKNESS NOTED. DRY SCABS AND ECCHYMOSIS TO BLE, EDWARDO. DENIES PAIN AT THIS TIME. IV PATENT AND INTACT. BED IN LOWEST POSITION, SIDE RAILS UP X2, CALL LIGHT WITHIN REACH. WILL CONTINUE TO MONITOR.
[2017-05-14 20:46] VITALS: BP 119/63
--- NOTE | 2017-05-15 01:32 | NUR ---
PT CURRENTLY RESTING IN BED, NO ACUTE DISTRESS. WILL CONTINUE TO MONITOR.
[2017-05-15 05:21] VITALS: BP 139/67
--- NOTE | 2017-05-15 05:49 | NUR ---
PT SLEPT PERIODICALLY THROUGHOUT NIGHT, NO ACUTE DISTRESS. ALL NEEDS MET AND ATTENDED TO. NO SIGNIFICANT CHANGES. IV PATENT AND INTACT. BED IN LOWEST POSITION, SIDE RAILS UP X2, CALL LIGHT WITHIN REACH. WILL ENDORSE CARE TO ONCOMING NURSE.
--- NOTE | 2017-05-15 08:00 | NUR ---
SITTING UP IN BED EATING BREAKFAST. BREATHING FREELY ON RA. DENIES ANY PAIN. TELE # 33 NSR. IV TO LEFT AC. BED IN LOW POSITION. HOB ELEVATED TO PREVENT ASPIRATION DURING BREAKFAST. SR UP X 2 CALL LIGHT WITHIN REACH.
--- NOTE | 2017-05-15 08:22 | NUR ---
RETURNED TELE # 33 TO TELE STATION.
[2017-05-15 10:00] VITALS: BP 89/51
--- NOTE | 2017-05-15 14:23 | NUR ---
DR. REED AND I WENT TO ENCOURAGE PT TO HAVE BLOOD DRAWN FOR COAG PANEL. PT IS ON COUMADIN. PT REFUSED.
--- NOTE | 2017-05-15 17:39 | NUR ---
PHYSICAL THERAPY DAILY NOTES CO-SIGN All documentation done by the Drafting Technician for 05/14/17 has been reviewed. I agree with the documentation. Reviewed/Co-Signed by: Greta Verma, IDA Documentation Done by: Ann-Marie Veloz, BETTY Patient nanda tx fairly, poor OOB nanda with limited bedside gait. Cont with PT POC as nanda/safe.
--- NOTE | 2017-05-15 18:13 | NUR ---
PT HAS SLEPT MOST OF THE DAY. NO C/O PAIN. BREATHING FREELY ON RA. ABLE TO TURN AND REPOSITION SELF IN BED. BED IN LOW POSITION, SR UP X 2, HOB SLIGHTLY ELEVATED. CALL LIGHT WITHIN REACH.
--- NOTE | 2017-05-15 19:30 | NUR ---
RECEIVED PATIENT FROM AM RN. PATIENT QUIETLY RESTING IN BED. BED ALARM ON AND IN LOW POSITION. PATIENT A/OX3 WITH EPISODES OF FORGETFULLNESS. IV SITE TO LAC FLUSHING WELL, NO INFILTRATION NOTED. PATIENT DENIES ANY PAIN AT THIS TIME. AV SHUNT TO KAREN. PATIENT VERBALIZES HOW TO USE CALL LIGHT WITHIN REACH CORRECTLY.
[2017-05-15 21:14] VITALS: BP 146/56
--- NOTE | 2017-05-15 22:00 | NUR ---
DR. GUZMÁN AWARE THAT PATIENT REFUSED INSULIN COVERAGE AND BLOOD PRESSURE MEDICATION DUE AT 2100. PATIENT UNDERSTANDS RISKS AND BENEFITS OF NOT OBTAINING INSULIN COVERAGE.
--- NOTE | 2017-05-16 | NUR ---
PATIENT QUIETLY RESTING IN BED. NO S/SX OF DISTRESS NOTED. ALL SAFETY MEASURES IN PLACE.
[2017-05-16 05:25] VITALS: BP 156/67
--- NOTE | 2017-05-16 08:00 | NUR ---
ALERT AND ORIENTED. BREATHING FREELY ON RA. HOB SLIGHTLY ELEVATED. DOZING OFF AND ON. RESPONDS TO VERBAL. DENIES ANY PAIN. SL TO LEFT AC PATENT. NO TELE. BED IN LOW POSITION. SR UP X 2 CALL LIGHT WITHIN REACH. EXPECTING PT TO GO TO [place] 05/21/17. ABLE TO TURN AND REPOSITION SELF IN BED. USES WHEEL CHAIR AT HOME. USES URINAL. OCC INCONTINENT.
[2017-05-16 09:48] VITALS: BP 156/68
[2017-05-16 17:05] VITALS: BP 137/59
--- NOTE | 2017-05-16 18:46 | NUR ---
ALERT AND ORIENTED. BREATHING FREELY ON RA. NO C/O PAIN. HD PT NO ORDER FOR HD TOMORROW. HD MON-WED-FRI. PT 22.7, INR 2.1, RECEIVED COUMADIN THIS EVENING.VSS. CALL LIGHT WITHIN REACH.
[2017-05-16 20:32] VITALS: BP 140/60
--- NOTE | 2017-05-16 20:53 | NUR ---
PATIENT CONTINUES TO REFUSE CERTAIN SCHEDULED MEDICATIONS DESPITE EDUCATION OF RISKS AND BENEFITS PROVIDED. NO SWALLOWING DIFFICULTY NOTED. PATIENT QUIETLY RESTING IN BED AT THIS TIME. CALL LIGHT WITHIN REACH AND BED ALARM ON AND IN LOW POSITION.
--- NOTE | 2017-05-17 03:43 | NUR ---
SAFETY ROUNDS MADE, PATIENT QUIETLY RESTING IN BED AT THIS TIME. NO S/SX OF DISTRESS NOTED. WILL CONTINUE TO MONITOR. CALL LIGHT WITHIN REACH.
--- NOTE | 2017-05-17 03:50 | NUR ---
DIALYSIS SET UP WITH FELIX.
[2017-05-17 05:50] VITALS: BP 146/64
--- NOTE | 2017-05-17 06:02 | NUR ---
PATIENT REFUSED LAB DRAWS THIS MORNING DESPITE RISKS AND BENEFITS.
--- NOTE | 2017-05-17 07:10 | NUR ---
TALK TO PT THE IMPORTANCE OF LAB DRAW, EXPLAINED TO HIM MULTIPLE TIME, PT AGREED AND CALLED LAB.
--- NOTE | 2017-05-17 07:55 | NUR ---
RECEIVED PT IN BED. ASSESSED AND DOCUMENTED. DENIES PAIN THIS TIME. SAFTEY PRECAUTIONS ON. WILL MONITOR.
[2017-05-17 08:23] LABS: CALCIUM 9.2 mg/dL (8.5-10.1); CHLORIDE SERUM 102 mmol/L (98-107); GLUCOSE SERUM 105 mg/dL (74-106); POTASSIUM SERUM 4.8 mmol/L (3.5-5.1); SODIUM SERUM 136 mmol/L (136-145)
--- NOTE | 2017-05-17 08:35 | NUR ---
AND RESIDENTS DID ROUNDS. EXPLAINED THE PLAN OF CARE.
[2017-05-17 09:37] VITALS: BP 128/55
--- NOTE | 2017-05-17 11:16 | NUR ---
PT NOTES CHART REVIEWED AND CLEARED FOR PT BY RN. 1ST ATTEMPT 0915 FOR THERAPY, PATIENT IN SEMIFOWLER POSITION RESTING, DECLINES PARTICIPATION IN THERAPY DESPITE MUCH EDUCATION AND MOTIVATION GIVEN, ALONG WITH POSSIBLE COMPLICATIONS OF PROLONG BED REST; PRESSURE SORES, MUSCLE WEAKNESS. PATIENT STATED; "NO, I'M NOT GETTING UP". EDUCATION AND MOTIVATION FOR EOB OR BED EXERCISES GIVEN, BUT CONTINUED TO DECLINE. RN AWARE AND WILL RETURN AT LATER TIME. RETURNED TO PATIENTS ROOM AROUND 0950 TO ATTEMPT AGAIN, BUT CONTINUES TO DECLINE PARTICIPATION IN BED MOBILITY, EOB OR OOB THERAPY. STATING, "MY KNEE BOTHERS ME", DID NOT EXPRESS PAIN LEVEL NOR GRIMACING. CONTINUED EDUCATING BENEFITS OF THERAPY AND POSSIBLE COMPLICATION OF PROLONGED BED REST, PATIENT CONTINUD TO DECLINE ACTIVE PARTICIPATION. RN MADE AWARE. PVEx2
--- NOTE | 2017-05-17 14:00 | NUR ---
HD FINISHED 2200 OUT PER HD NURSE.
[2017-05-17 17:06] VITALS: BP 102/49
--- NOTE | 2017-05-17 19:20 | NUR ---
PT RESTING IN BED COMFORTABLY. DENIES PAIN THIS TIME. GAVE REPORT TO NEXT SHIFT NURSE.
--- NOTE | 2017-05-17 19:30 | NUR ---
RECEIVED PT IN BED AWAKE, ALERT,ORIENTED X2. LUNG SOUNDS CLEAR. NO SOB ON RA. W/ ACTIVE BOWEL SOUNDS. HE HAS NO C/O PAIN AT THIS TIME. W/ AV SHUNT TO KAREN. IVF NS AT 10 CC/HR INFSING WELL VIA LTAC. CALL LIGHT W/IN REACH.
--- NOTE | 2017-05-17 22:00 | NUR ---
PT'S IV TO LTAC NOT PATENT. PT REFUSED IV REINSERTION. DR. GUZMÁN NOTIFIED.
[2017-05-17 22:06] VITALS: BP 126/57
--- NOTE | 2017-05-18 | NUR ---
PT APPEARS TO BE SLEEPING COMFORTABLY.
[2017-05-18 06:09] VITALS: BP 119/55
[2017-05-18 06:35] LABS: CALCIUM 8.7 mg/dL (8.5-10.1); CARBON DIOXIDE 33.4 mmol/L (21-32); CHLORIDE SERUM 97 mmol/L (98-107); CREATININE SERUM 3.2 mg/dL (0.7-1.3); GLUCOSE SERUM 84 mg/dL (74-106); POTASSIUM SERUM 4.1 mmol/L (3.5-5.1); SODIUM SERUM 139 mmol/L (136-145)
--- NOTE | 2017-05-18 06:45 | NUR ---
EXPLAINED TO PT AGAIN IMPORTANCE OF HAVING IV ACCESS. PT VERBALIZED UNDERSTANDING AND AGREED TO HAVE IV INSERTED. STARTED IV ON THE LTFA. PT TOLERATED PROCEDURE WELL.
--- NOTE | 2017-05-18 06:49 | NUR ---
PT RESTING QUIETLY IN BED. HE SLEPT AT LONG INTERVALS. HE HAD NO C/O PAIN. NO EPISODE OF SOB. PT UNCOOPERATIVE W/ CARE AT TIMES. NO BM NOTED THIS SHIFT. IVF NS AT 10 CC/HR INFUSING WELL VIA LTFA.
--- NOTE | 2017-05-18 07:55 | NUR ---
RECEIVED PT IN BED. ASSESSED AND DOCUMENTED DENIES PAIN THIS TIME. STABLE. NO DISTRESS NOTED. SAFTEY PRECAUTIONS ON. WILL MONITOR.
[2017-05-18 09:42] VITALS: BP 116/45
--- NOTE | 2017-05-18 11:12 | NUR ---
Initial Nutrition Assessment Dx: Renal Failure, Generalized Weakness PMHx: ESRD on HD MWF [facility], chronic a fib, CAD s/p CABG, PAD, HLD, GERD, HTN, type 2 DM PSHx: CABG, s/p ORIF, L hip arthroplasty Labs: BG 84, BUN 27 H, Cr 3.2 H, H/H 10/31 L; (05/11) ALB 3.2 L, AST 14 L, ALT 15 L, A1C 5.8, Phosphorous 3.3 Meds: Colace, D50, humulin R, protonix, renagel, NS IV, zofran Current Diet Order: Cardiac PO Intakes: (05/16) B: 100%; (05/17) B: 80%, L: 80%, D: 80%; (05/18) B: 100% Ht: 67", 5' 7". Wt: 136 lb, 62 kg. BMI: 21.4 kg/m2 (Normal) IBW: 148 lb, 67 kg. %IBW: 93%. UBW: Pt unable to recall. Wt Hx: (02/10/17) 141 lb, 64 kg. Age: 76 Y/O M Food Allergies: None Skin: Intact. Jovan 17. Edema: None GI: Active bowel sounds. Last BM 05/12. No BM x6 days. Per pt, stated had BM yesterday morning 05/17. Pt found with disorder of ANS with weakness and imbalance, r/o CVA, ESRD on HD MWF with [facility] per doctor's notes. Pt was seen resting in bed, RN at bedside providing medications. Noted missing upper and some missing bottom teeth, pt agreeable to have foods chopped for easier consumption. Pt stated that he has good PO intakes, no issues at this time. Per prior RD note 02/10/17, has bottom missing teeth, declined texture changes, does not like to drink Nepro, declined education/handouts Problem with: N: None. V: None. D: None. C: Yes. Problems with: Chewing: None. Swallowing: None. Current Appetite: Good Recent Weight Change: -5 lb. % Weight Change: 3.5% weight loss within 3 months - Likely fluid shifts, noted pt on dialysis. Vitamin/Supplement use: Pt unable to recall Diet at Home (Pt is a resident at [facility]): None noted in chart Physical Activity: Pt is wheelchair bound per H&P documentation Education: Pt declined when RD offered Estimated Nutritional Needs Based CBW 136 lb, 62 kg. Energy: 7350-7651 kcal/day (30-35 kcal/kg for ESRD on HD) Protein: 74-87 gm/day (1.2-1.4 gm/kg for ESRD on HD) Fluids: Output + 750 ml/day (ESRD on HD) or per doctor Nutrition Diagnosis Increase nutritional (energy and protein) needs related to impaired renal function as evidenced by pt with ESRD on HD Intervention 1. Recommend Mechanical Soft, Chopped, Renal diet. 2. Recommend Nephro-aggie 1 tab PO daily. 3. Consider Renal, CCHO-75 gm diet if BG levels trending high. 4. Adjust BM regimen. Noted no BM x6 days, last BM 05/12. Monitor/Evaluate Goal: PO intakes to meet >75% of estimated needs; BM at F/U Monitor: PO intakes, tolerance to diet, labs (renal, BG), skin integrity, GI function F/U in 3-5 days as MODERATE risk (05/21-05/23)
--- NOTE | 2017-05-18 11:26 | NUR ---
1. Recommend Mechanical Soft, Chopped, Renal diet. 2. Recommend Nephro-aggie 1 tab PO daily. 3. Consider Renal, CCHO-75 gm diet if BG levels trending high. 4. Adjust BM regimen. Noted no BM x6 days, last BM 05/12.
--- NOTE | 2017-05-18 15:00 | NUR ---
PT RESTING IN BED COMFORTABLY. DENIES PAIN THIS TIME.STABLE.
--- NOTE | 2017-05-18 16:33 | NUR ---
PHYSICAL THERAPY DAILY NOTES CO-SIGN All documentation done by the Mutual Funds Agent for 05/18/17 has been reviewed. I agree with the documentation. Reviewed/Co-Signed by: Lorri Okeefe PT Documentation Done by:ROBERTO JIMENEZ SUPERINTENDENT CIRCUS POC REVIEWED W/ SUPERINTENDENT CIRCUS; PROGRESS LAZARO; WILL BENEFIT W/ P.T. AFTER ACUTE STAY, EMHASIS ON W/C MGMT, FALL PREVENTION TECH.
--- NOTE | 2017-05-18 17:23 | NUR ---
Notified by Tamika Wei that patient will be transferred to SNF tomorrow and he will need dialysis prior to trasfer. Spoke with Joselyn from Dialysis and she confirmed 8 am to start HD tomorrow. Dr Mosher and attending nurse Trinh made aware of the transfer plan.
[2017-05-18 17:24] VITALS: BP 108/44
--- NOTE | 2017-05-18 19:15 | NUR ---
PT REMAINS STABLE. GAVE REPORT TO NEXT SHIFT NURSE.
--- NOTE | 2017-05-18 19:20 | NUR ---
RECEIVED PT IN BED ASLEP BUT EASILY AROUSABLE. HE IS ORIENTED TO PERSON AND PLACE. HE HAS NO C/O HEADACHE AND DIZZINESS. NO FACIAL DROOP. LUNGS CTA. NO SOB ON RA. BOWEL SOUNDS ARE ACTIVE. PT HAS NO C/O PAIN. W/ AV SHUNT TO KAREN W/ DRESSING CDI. W/ IVF NS AT 10 CC/HR INFUSING VIA LTFA. CALL LIGHT W/IN REACH.
[2017-05-18 22:08] VITALS: BP 144/63
--- NOTE | 2017-05-19 00:57 | NUR ---
PT AWAKE AT THIS TIME AND HE IS DISORIENTED TO TIME. PT ORIENTED TO TIME AND SITUATION.
--- NOTE | 2017-05-19 05:14 | NUR ---
PT SLEPT FAIRLY. HE IS RESTING QUIETLY IN BED AT THIS TIME. HE HAD EPISODES DISORIENTATION AND WAS REORIENTED NEEDED. HE HAD C/O PAIN. W/ IVF NS AT 10 CC/HR VIA LTFA. PT SCHEDULED FOR HEMODIALYSIS TODAY.
--- NOTE | 2017-05-19 05:30 | NUR ---
REPORTED TO DR. GUZMÁN THAT PT W/ NO BM SINCE 05/12.
[2017-05-19 06:13] VITALS: BP 144/63
--- NOTE | 2017-05-19 06:19 | NUR ---
EXPLAINED TO PT PURPOSE OF FLEET ENEMA. PT REFUSING AT FIRST BUT EVENTUALLY AGREED TO HAVE IT DONE. PT VERBALIZED UNDERSTANDING. FLEET ENEMA ADMINISTERED ORDERED.
--- NOTE | 2017-05-19 06:30 | NUR ---
PT HAD MOD AMOUNT OF HARD BM AFTER FLEET ENEMA.
--- NOTE | 2017-05-19 07:00 | NUR ---
IV TO LTFA NOT PATENT. IV REMOVED. STARTED NEW IV ON THE LT WRIST. PT TOLERATED PROCEDURE WELL.
[2017-05-19 07:52] VITALS: BP 157/68
--- NOTE | 2017-05-19 08:01 | NUR ---
A/O X3. PERIODS OF FORGETFULNESS. CLEAR SPEECH. FOLLOW COMMANDS BUT PERIODS OF UNCOOPERATIVE WITH CARE. ON MED SURG HR 70. RADIAL AND PEDAL PULSES PALPABLE. NO EDEMA. KAREN FISTULA BRUIT AND THRILL PRESENT. <3 SECS CAP REFILL. ON RA SAT 98%. BREATHING EVEN AND UNLABORED. NO NVD. GENERALIZED WEAKNESS. SCABS AND ECCHYMOSIS BLE. DENIES PAIN AT THIS TIME. IV SITE INTACT ON LW. WILL CONTINUE TO MONITOR. CALL LIGHT WITHIN REACH.
--- NOTE | 2017-05-19 08:03 | NUR ---
HD NURSE AT BEDSIDE.
--- NOTE | 2017-05-19 08:11 | NUR ---
PILLS CRUSHED WITH APPLE SAUCE PER REQUEST BY Pt. TOOK MEDS WITHOUT DIFFICULTY. WILL CONTINUE TO MONITOR.
[2017-05-19 09:28] VITALS: BP 136/68
--- NOTE | 2017-05-19 09:59 | NUR ---
HD RN STILL AT BEDSIDE. DIALYSIS ONGOING.
--- NOTE | 2017-05-19 11:26 | NUR ---
Pt REFUSED INSULIN. BLOOD SUGAR OF 223. BRIANNA PAGED. AWAITING CALL BACK.
--- NOTE | 2017-05-19 11:32 | NUR ---
PER HD RN 2L TAKEN OUT.
[2017-05-19 12:16] VITALS: BP 136/68
--- NOTE | 2017-05-19 14:51 | NUR ---
PT NOTES CLEARED BY RN FOR P.T. TX. FIRST ATTEMPT (829), PATIENT IS UNAVAILABLE D/T PATIENT AT THIS TIME HAVING DIALYSIS. SECOND ATTEMPT (1334), PATIENT IS ASLEEP, BUT AROUSABLE. ATTEMPTED TO SEE PATIENT FOR P.T. TX. HOWEVER PATIENT IS DECLINING P.T. TX. PATIENT WAS EDUCATED ON THE IMPORTANCE OF THERAPY & THE RISK/COMPLICATIONS OF IMMOBILIZATION, BUT PATIENT STILL CONTINUED TO DECLINE. RN IS AWARE. PRIMARY PHYSICAL THERAPIST AWARE. PVE(2)
--- NOTE | 2017-05-19 16:10 | NUR ---
SPOKE TO AGA/SISTER REGARDING STATUS. MENTIONED TO AGA THAT Pt HAS BEEN UNCOOPERATIVE WITH CARE. AGA SPOKE TO Pt AND WAS NOT ABLE TO CONVINCE Pt TO TAKE THE INSULIN.
--- NOTE | 2017-05-19 16:59 | NUR ---
GAVE REPORT TO TOI FROM [facility].
--- NOTE | 2017-05-19 17:03 | NUR ---
PERSON TO NOTIFIED WAS CALLED DEVIN PRATHER. NO ANSWER AT THIS TIME. AWAITING CALL BACK.
== END 2017-05-19 18:20 | DRG 73 ==
LOC: ED 09:39 → DU 11:05 → MU 05-15 09:11
PROVIDERS: Emergency Medicine; Family Medicine; Internal Medicine Nephrology; ADMIT Family Medicine
DX: G90.9 Disorder of the autonomic nervous system, unspecified (principal); I50.43 Acute on chronic combined systolic (congestive) and diastolic (congestive) heart failure; N18.6 End stage renal disease; N17.0 Acute kidney failure with tubular necrosis; I13.2 Hypertensive heart and chronic kidney disease with heart failure and with stage 5 chronic kidney disease, or end stage renal disease; E44.0 Moderate protein-calorie malnutrition; I42.2 Other hypertrophic cardiomyopathy; D68.69 Other thrombophilia; I48.2 Chronic atrial fibrillation; E11.51 Type 2 diabetes mellitus with diabetic peripheral angiopathy without gangrene; K21.9 Gastro-esophageal reflux disease without esophagitis; E87.6 Hypokalemia; D63.1 Anemia in chronic kidney disease; E78.5 Hyperlipidemia, unspecified; I25.10 Atherosclerotic heart disease of native coronary artery without angina pectoris; Z99.2 Dependence on renal dialysis; Z68.21 Body mass index [BMI] 21.0-21.9, adult; Z95.1 Presence of aortocoronary bypass graft; R31.9 Hematuria, unspecified
CPT/HCPCS: 82962; 83880; 84439; 97110-GP; 97116-GP; 97530-GP; A4719; J3475; J3490; J7030; J7050; Q0092

== ENCOUNTER 2017-10-01 13:00 | Emergency (ER) | payer OTHER, MEDICAID ==
[~2017-10-01] VITALS: Ht 162.6 cm; Wt 72.6 kg
[2017-10-01 13:14] VITALS: Ht 162.6 cm; Wt 72.6 kg
[2017-10-01 16:49] VITALS: BP 121/60
== END 2017-10-01 16:50 | disposition home or self-care (01) ==
LOC: ED 13:00
DX: R07.89 Other chest pain (principal); E11.22 Type 2 diabetes mellitus with diabetic chronic kidney disease; I12.0 Hypertensive chronic kidney disease with stage 5 chronic kidney disease or end stage renal disease; N18.6 End stage renal disease; E78.00 Pure hypercholesterolemia, unspecified; I73.9 Peripheral vascular disease, unspecified; I25.10 Atherosclerotic heart disease of native coronary artery without angina pectoris; Z95.1 Presence of aortocoronary bypass graft; Z99.2 Dependence on renal dialysis; Z88.8 Allergy status to other drugs, medicaments and biological substances
CPT/HCPCS: Q0092